=== PATIENT | male | born 1970 | race Hispanic/Latino ===

== ENCOUNTER 2024-08-31 12:54 | Emergency (ER) | payer OTHER, BC ==
[~2024-08-31] VITALS: Ht 172.7 cm; Wt 154.2 kg
[2024-08-31] MEDS: ceFAZolin SODIUM 1 GM VIAL IVPB ONE (13:16)
[2024-08-31] MEDS: teTANUS/diphthERIA TOXOID [ADULT] 0.5 ML VIAL IM ONE (14:17)
[2024-08-31] MEDS: ondanSETRON 4MG INJ IVP ONE (15:15)
[2024-08-31] MEDS: morPHINE 2 MG SYG IVP ONE (15:15)
[2024-08-31 16:15] VITALS: BP 141/90; PULSE 90; RESP 18; TEMP 98.1; O2SAT 98
[2024-08-31] MEDS ORDERED: CEPH500B PO (16:22)
== END 2024-08-31 16:29 | disposition home or self-care (01) ==
LOC: EDH 12:54
DX: S81.811A Laceration without foreign body, right lower leg, initial encounter (principal); E66.01 Morbid (severe) obesity due to excess calories; Z90.49 Acquired absence of other specified parts of digestive tract; Z68.43 Body mass index [BMI] 50.0-59.9, adult; W18.39XA Other fall on same level, initial encounter; Y93.89 Activity, other specified; Y92.69 Other specified industrial and construction area as the place of occurrence of the external cause; Y99.0 Civilian activity done for income or pay
CPT/HCPCS: 99284; 12035; 96365; 96366; 96375; 36415; 90714; 73562; 73590; 90471; 86317; J0690; J2270; J2405